=== PATIENT | female | born 1975 | race Caucasian/White ===

== ENCOUNTER → 2016-10-03 | Outpatient (CLI) | payer BC, OTHER ==
--- NOTE | 2016-10-03 15:04 | RAD ---
Left hand without contrast, 10/03/2016: History: Injury, thumb pain Multidetector CT imaging was performed with multiplanar reconstructions produced. There are accessory ossicles at the IP and MCP joints of the thumb. No acute fracture or dislocation is identified. No destructive bony lesion is seen. No soft tissue mass or abnormal fluid collection is seen. There is mild nonspecific subcutaneous edema. IMPRESSION: No significant bony abnormality is detected. PQRS Compliance Statement: One or more of the following individualized dose reduction techniques were utilized for this examination: 1. Automated exposure control 2. Adjustment of the mA and/or kV according to patient size 3. Use of iterative reconstruction technique
== END | disposition home or self-care (01) ==
LOC: CT 13:47
PROVIDERS: ATTEND Family Medicine
DX: M79.642 Pain in left hand (principal)
CPT/HCPCS: 73200

== ENCOUNTER → 2017-07-11 | Outpatient (CLI) | payer BC ==
--- NOTE | 2017-07-11 11:48 | RAD ---
CT of the paranasal sinuses without contrast, 07/11/2017: History: Chronic sinusitis Noncontrast scans were obtained with multiplanar reconstructions produced. There is mild mucosal thickening inferiorly in both maxillary sinuses. The ethmoid infundibulum of the ostiomeatal complex is patent bilaterally. There is mild mucosal thickening anteriorly in the left ethmoid sinus and inferiorly in both frontal sinuses. There is mild mucosal thickening laterally in the right sphenoid sinus. No free fluid is evident in the paranasal sinuses. The anterior aspect of the nasal septum is deviated to the right of midline. The orbital contents are unremarkable. IMPRESSION: 1. Mild mucosal thickening in several paranasal sinuses bilaterally as described above. No free fluid is seen in the sinuses to suggest acute sinusitis. 2. Mild deviation of the nasal septum. PQRS Compliance Statement: One or more of the following individualized dose reduction techniques were utilized for this examination: 1. Automated exposure control 2. Adjustment of the mA and/or kV according to patient size 3. Use of iterative reconstruction technique
== END | disposition home or self-care (01) ==
LOC: CT 10:36
PROVIDERS: ATTEND Nurse Practitioner Adult Health
DX: J32.9 Chronic sinusitis, unspecified (principal); J34.2 Deviated nasal septum
CPT/HCPCS: 70486

== ENCOUNTER → 2018-05-07 | Outpatient (CLI) | payer BC ==
--- NOTE | 2018-05-07 16:52 | RAD ---
Left lower extremity arterial Doppler ultrasound HISTORY: DX: Left knee pain; Left leg pain; R/O PVD IMP: All triphasic waveforms- no plaque or stenosis seen TECHNIQUE: Color Doppler, grayscale and duplex analysis performed of the lower extremity arterial structures, from the common femoral artery through the runoff vessels. COMPARISON: None are available Findings: All velocity measurements are in centimeters per second. Triphasic waveforms are identified from the left common femoral artery through the ankle. Velocities range from 41 to 121 cm/s. No abrupt concerning velocity change is identified. No evidence of high-grade luminal narrowing or occlusion. IMPRESSION: No significant sonographic abnormality. Electronically signed by: Dutch Lezama MD (05/07/2018 4:49 PM) [facility]
== END | disposition home or self-care (01) ==
LOC: US 14:44
PROVIDERS: ATTEND Family Medicine
DX: M25.562 Pain in left knee (principal)
CPT/HCPCS: 93926

== ENCOUNTER → 2020-01-28 | Outpatient (CLI) | payer BC ==
--- NOTE | 2020-01-28 09:12 | RAD ---
EXAM: CT Abdomen and Pelvis without IV contrast CLINICAL HISTORY: PERIUMBILICAL PAIN X 6 MONTHS, HX CHOLECYSTECTOMY COMPARISON: none TECHNIQUE: Helical CT of the abdomen and pelvis was performed without the administration of IV contrast. Axial, coronal and sagittal reformatted images were generated. ---PQRS compliance statement - One or more of the following individualized dose reduction techniques were utilized for this study: 1. Automated exposure control 2. Adjustment of the mA and/or kV according to patient size 3. Use of iterative reconstruction technique--- FINDINGS: Lack of intravenous contrast limits evaluation of solid organs, vasculature, and lymph nodes. Lower chest: Linear opacities in the middle lobe likely scarring/atelectasis. Abdomen and pelvis: Liver and biliary system: Hepatic hypoattenuation likely fatty liver. Liver is enlarged measuring about 20 cm in length. Cholecystectomy clips are seen. No biliary ductal dilatation. Spleen: Unremarkable Pancreas: Unremarkable Adrenal glands: Unremarkable Kidneys: Parapelvic cysts of the lower pole right kidney. Lymph nodes/retroperitoneum: No abdominal or pelvic lymphadenopathy. Vessels: Aorta is normal in caliber. Bowel/Peritoneal cavity: Moderate colonic stool content is seen. Colonic diverticula are noted. No small or large bowel dilatation. No bowel obstruction. Appendix is normal. No abdominal or pelvic ascites. Abdominal wall: Small fat-containing periumbilical hernia is seen. Bladder: Unremarkable Bones: Multilevel Schmorl's nodes are seen. Decreased bone mineral density. Multilevel disc height loss. IMPRESSION: 1. No bowel obstruction. 2. Hepatomegaly and hepatic hypoattenuation likely fatty liver. 3. Colonic diverticula are seen without evidence for acute diverticulitis. Electronically signed by: Ceferino Walsh MD (01/28/2020 9:09 AM) [facility]
== END | disposition home or self-care (01) ==
LOC: CT 08:37
PROVIDERS: ATTEND Family Medicine
DX: K42.9 Umbilical hernia without obstruction or gangrene (principal); K57.30 Diverticulosis of large intestine without perforation or abscess without bleeding; R16.0 Hepatomegaly, not elsewhere classified; N94.89 Other specified conditions associated with female genital organs and menstrual cycle
CPT/HCPCS: 74176